=== PATIENT | male | born 1995 | race Caucasian/White ===

== ENCOUNTER 2017-10-11 18:48 | Emergency (ER) | payer BC ==
[~2017-10-11] VITALS: Ht 177.8 cm; Wt 86.8 kg
[2017-10-11 18:51] VITALS: BP 134/84; PULSE 85; TEMP 97.4
[2017-10-11] MEDS ORDERED: CLARITIN 1010 MG/TAB PO (18:57)
[2017-10-11] MEDS ORDERED: DOXYCYCLINE 10100 MG PO (18:58)
== END 2017-10-11 19:23 | disposition home or self-care (01) ==
LOC: COL.ER 18:48
DX: S90.562A Insect bite (nonvenomous), left ankle, initial encounter (principal); Z98.890 Other specified postprocedural states; W57.XXXA Bitten or stung by nonvenomous insect and other nonvenomous arthropods, initial encounter